=== PATIENT | female | born 1995 | race Caucasian/White ===

== ENCOUNTER 2017-09-25 14:30 | Emergency (ER) | payer OTHER ==
[2017-09-25] MEDS ORDERED: MAG HYDROX/AL HYDROX/SIMETH 30 ML UNIT-DOSE CUP PO ONE (14:43)
[2017-09-25] MEDS ORDERED: ACETAMINOPHEN 325 MG TABLET (FP) PO ONE (14:43)
--- NOTE | 2017-09-25 14:43 | PDOC ---
Rapid Medical Evaluation Time Seen by Provider: 09/25/17 14:37 Medical Evaluation: 09/25/17 14:37 I have performed a brief in-person evaluation of this patient. The patient presents with a chief complaint of: vomiting, epigastric burning Pertinent physical exam findings: PULM: CTAB Cards: RRR. No M/R/G. I have ordered the following: EKG, UPT, UA, Maalox, Tylenol The patient will proceed to the ED for further evaluation. Discharge Disposition - Diagnosis Vomiting Qualifiers: Vomiting type: unspecified Vomiting Intractability: unspecified Nausea presence : unspecified Qualified Code(s): R11.10 - Vomiting, unspecified - Referrals - Patient Instructions - Post Discharge Activity
[2017-09-25 14:44] VITALS: TEMP 97.8; BMI 22.1
[2017-09-25] MEDS ORDERED: SODIUM CHLORIDE 1,000 ML IV STA (14:44)
[2017-09-25 15:30] LABS: URINE APPEARANCE SLCLOUDY; URINE BILIRUBIN NEGATIVE (NEGATIVE); URINE BLOOD NEGATIVE (NEGATIVE); URINE COLOR YELLOW; URINE GLUCOSE (UA) NEGATIVE (NEGATIVE); URINE KETONE NEGATIVE (NEGATIVE); URINE NITRITE NEGATIVE (NEGATIVE); URINE PROTEIN NEGATIVE (NEGATIVE); URINE UROBILINOGEN NEGATIVE mg/dL (0.2-1.0)
[2017-09-25 15:40] LABS: ALBUMIN 3.8 g/dl (3.4-5.0); ANION GAP 13 (8-16); BASOPHIL 0.6 % (0-2.0); BILIRUBIN,TOTAL 0.1 mg/dL (0.2-1.0); CO2 21 mmol/L (21-32); CREATININE 0.7 mg/dL (0.55-1.02); EOSINOPHIL 1.7 % (0-4.5); GLUCOSE,RANDOM 95 mg/dL (74-106); MCH 31.7 pg (25.7-33.7); MEAN CELL VOLUME 93.1 fl (80-96); MEAN PLT VOLUME 9.3 fl (7.5-11.1); NEUTROPHILS 62.7 % (42.8-82.8); PLATELET COUNT 332 K/MM3 (134-434); RDW 12.6 % (11.6-15.6); SGOT/AST 6 U/L (15-37); TOT PROT 7.8 g/dl (6.4-8.2); WHITE BLOOD COUNT 9.9 K/mm3 (4.0-10.0)
[2017-09-25 15:42] LABS: ALK PHOS 64 U/L (45-117); SGPT/ALT 16 U/L (12-78)
[2017-09-25] MEDS ORDERED: ACETAMINOPHEN 325 MG TABLET (FP) ONE (15:52)
[2017-09-25] MEDS ORDERED: MAG HYDROX/AL HYDROX/SIMETH 30 ML UNIT-DOSE CUP ONE (15:52)
--- NOTE | 2017-09-25 15:56 | PDOC ---
History of Present Illness - General History Source: Patient Exam Limitations: No Limitations - History of Present Illness Initial Comments: 09/25/17 16:43 22 year old female, with significant past medical history of gastritis, asthma, and tremors, who presents to the emergency room complaining of epigastric pain and vomiting that began 2 hours after eating today. The patient states that the pain feels like burning and radiates to her throat. She reports multiple episodes of nonbilious, nonbloody vomiting after eating. The patient also notes that she feels very bloated. She denies diarrhea, but states that her bowel movements have been more frequent than usual. She reports that these symptoms feel similar to when she was diagnosed with gastritis.She notes that she has an appointment with a senior escrow officer next Friday. Denies fever, chills. Denies diarrhea, constipation. Denies recent travel. Allergies: Sulfa PCP: Dr. Nino <Yvrose Li - Last Filed: 09/25/17 16:43> <Corry Rodrigues - Last Filed: 09/25/17 17:23> - General Chief Complaint: Pain, Acute Stated Complaint: CHEST PAIN Time Seen by Provider: 09/25/17 14:37 Past History <Yvrose Li - Last Filed: 09/25/17 16:43> - Past Medical History Asthma: Yes COPD: No Other medical history: tremors - Suicide/Smoking/Psychosocial Hx Smoking History: Former smoker Have you smoked in the past 12 months: Yes Information on smoking cessation initiated: No <Corry Rodrigues - Last Filed: 09/25/17 17:23> - Past Medical History Allergies/Adverse Reactions: Allergies Allergy/AdvReac Type Severity Reaction Status Date / Time Sulfa (Sulfonamide Allergy Verified 09/25/17 14:40 Antibiotics) Home Medications: Ambulatory Orders Ondansetron [Ondansetron Odt] 8 mg PO TID PRN #10 tab.roshan 09/25/17 Pantoprazole Sodium [Protonix] 40 mg PO DAILY #14 tablet. 09/25/17 Review of Systems - Review of Systems Able to Perform ROS?: Yes Comments:: 09/25/17 16:43 GENERAL/CONSTITUTIONAL: No fever or chills. No weakness. HEAD, EYES, EARS, NOSE AND THROAT: No change in vision. No ear pain or discharge. No sore throat. GASTROINTESTINAL: +epigastric pain, nausea, vomiting. No diarrhea or constipation. GENITOURINARY: No dysuria, frequency, or change in urination. CARDIOVASCULAR: No chest pain or shortness of breath. RESPIRATORY: No cough, wheezing, or hemoptysis. MUSCULOSKELETAL: No joint or muscle swelling or pain. No neck or back pain. SKIN: No rash NEUROLOGIC: No headache, vertigo, loss of consciousness, or change in strength/ sensation. ENDOCRINE: No increased thirst. No abnormal weight change. HEMATOLOGIC/LYMPHATIC: No anemia, easy bleeding, or history of blood clots. ALLERGIC/IMMUNOLOGIC: No hives or skin allergy. <Yvrose Li - Last Filed: 09/25/17 16:43> *Physical Exam - Vital Signs Last Vital Signs Temp Pulse Resp BP Pulse Ox 97.8 F 86 19 150/112 99 09/25/17 14:40 09/25/17 14:40 09/25/17 14:40 09/25/17 14:40 09/25/17 14:40 - Physical Exam Comments: 09/25/17 16:43 Constitutional: Awake, alert, oriented. No acute distress. Head: Normocephalic. Atraumatic Eyes: PERRL. EOMI. Conjunctivae are not pale. ENT: Mucous membranes are moist and intact. Posterior pharynx without exudates or erythema. Uvula midline. Neck: Supple. Full ROM. No lymphadenopathy. Cardiovascular: Regular rate. Regular rhythm. S1, S2 regular. Distal pulses are 2+ and symmetric. Pulmonary/Chest: No evidence of respiratory distress. Clear to auscultation bilaterally No wheezing, rales or rhonchi. Abdominal: Soft and non-distended. There is no tenderness. No rebound, guarding or rigidity. No organomegaly. No palpable masses. Good bowel sounds. Back: No CVA tenderness. Musculoskeletal: No edema. No cyanosis. No clubbing. Full range of motion in all extremities. Nocalf tenderness. Radial/pedal pulses are intact and 2+ bilaterally Skin: Skin is warm and dry. No petechiae. No purpura. Neurological: Alert and oriented to person, place, and time. Cranial nerves II -XII are grossly intact. Normal speech. Strength is grossly symmetric. No sensory deficits. Psychiatric: Good eye contact. Normal interaction, affect and behavior. <Yvrose Li - Last Filed: 09/25/17 16:43> - Vital Signs Last Vital Signs Temp Pulse Resp BP Pulse Ox 97.8 F 86 19 150/112 99 09/25/17 14:40 09/25/17 14:40 09/25/17 14:40 09/25/17 14:40 09/25/17 14:40 <Corry Rodrigues - Last Filed: 09/25/17 17:23> ED Treatment Course - LABORATORY CBC & Chemistry Diagram: 09/25/17 15:15 09/25/17 15:15 - ADDITIONAL ORDERS Additional order review: Laboratory Results 09/25/17 09/25/17 15:15 15:15 Sodium 141 Potassium 4.1 Chloride 107 Carbon Dioxide 21 Anion Gap 13 BUN 10 Creatinine 0.7 Creat Clearance w eGFR > 60 Random Glucose 95 Calcium 9.0 Total Bilirubin 0.1 L AST 6 L ALT 16 Alkaline Phosphatase 64 Total Protein 7.8 Albumin 3.8 Urine Color Yellow Urine Appearance Slcloudy Urine pH 6.0 Ur Specific [place] 1.020 Urine Protein Negative Urine Glucose (UA) Negative Urine Ketones Negative Urine Blood Negative Urine Nitrite Negative Urine Bilirubin Negative Urine Urobilinogen Negative Urine HCG, Qual Negative 09/25/17 15:15 RBC 4.16 MCV 93.1 MCHC 34.0 RDW 12.6 MPV 9.3 Neutrophils % 62.7 Lymphocytes % 28.8 Monocytes % 6.2 Eosinophils % 1.7 Basophils % 0.6 - Medications Given in the ED: ED Medications Discontinued Medications Generic Name Dose Route Start Last Admin Trade Name Meryl PRN Reason Stop Dose Admin Acetaminophen 650 mg 09/25/17 14:43 09/25/17 16:10 Tylenol - PO 09/25/17 14:44 650 mg ONCE ONE Administration Al Hydroxide/Mg Hydroxide 30 ml 09/25/17 14:43 09/25/17 16:10 Mylanta Oral Suspension - PO 09/25/17 14:44 30 ml ONCE ONE Administration Sodium Chloride 1,000 mls @ 1,000 mls/hr 09/25/17 14:44 09/25/17 16:11 Normal Saline - IV 09/25/17 15:43 1,000 mls/hr ASDIR STA Administration <Yvrose Li - Last Filed: 09/25/17 16:43> - LABORATORY CBC & Chemistry Diagram: 09/25/17 15:15 09/25/17 15:15 - ADDITIONAL ORDERS Additional order review: Laboratory Results 09/25/17 09/25/17 15:15 15:15 Sodium 141 Potassium 4.1 Chloride 107 Carbon Dioxide 21 Anion Gap 13 BUN 10 Creatinine 0.7 Creat Clearance w eGFR > 60 Random Glucose 95 Calcium 9.0 Total Bilirubin 0.1 L AST 6 L ALT 16 Alkaline Phosphatase 64 Total Protein 7.8 Albumin 3.8 Urine HCG, Qual Negative 09/25/17 15:15 RBC 4.16 MCV 93.1 MCHC 34.0 RDW 12.6 MPV 9.3 Neutrophils % 62.7 Lymphocytes % 28.8 Monocytes % 6.2 Eosinophils % 1.7 Basophils % 0.6 <Corry Rodrigues - Last Filed: 09/25/17 17:23> Medical Decision Making - Medical Decision Making 09/25/17 16:26 a/p: 22yo female with epigastric burning up through her chest and sour taste in the back of her mouth -no infectious etiology -abd soft and nontender suspect gastritis vs GERD no ruq ttp -labs sent by E which on review did not show acute anormalities -no diarrhea, no dysuria -pt is nontoxic in appearance -received maalox and is feeling better. no burning. has appt on friday of next week to see GI hx of gastritis in the past that was treated with meds will continue to monitor 09/25/17 17:14 re-eval: pt feeling better. PO challenging now. labs reviewed. 09/25/17 17:23 pt tolerated po. feeling at baseline. stable for d/c to home. Pt will keep her appt with GI for next week. <Corry Rodrigues - Last Filed: 09/25/17 17:23> *DC/Admit/Observation/Transfer - Attestations Scribe Attestion: 09/25/17 16:43 Documentation prepared by FAYE Grant, acting as front office medical assistant for Corry Rodrigues DO. <Yvrose Li - Last Filed: 09/25/17 16:43> - Discharge Dispostion Admit: No - Attestations Physician Attestion: 09/25/17 16:32 I, . Corry Rodrigues, DO, attest that this document has been prepared under my direction and personally reviewed by me in its entirety. I further attest, that it accurately reflects all work, treatment, procedures and medical decision -making performed by me. <Corry Rodrigues - Last Filed: 09/25/17 17:23> Diagnosis at time of Disposition: Epigastric abdominal pain Vomiting Qualifiers: Vomiting type: unspecified Vomiting Intractability: unspecified Nausea presence : unspecified Qualified Code(s): R11.10 - Vomiting, unspecified - Discharge Dispostion Disposition: HOME - Prescriptions Prescriptions: Ondansetron [Ondansetron Odt] 8 mg PO TID PRN #10 tab.rapdis PRN Reason: Nausea And/Or Vomiting Pantoprazole Sodium [Protonix] 40 mg PO DAILY #14 tablet.dr - Referrals Referrals: Jamie Nino MD [Primary Care Provider] - - Patient Instructions Printed Discharge Instructions: DI for Gastritis, Baker Diet Additional Instructions: Please keep your appointment with the senior escrow officer for next friday. Please take all meds as prescribed. Please return to the ED with any further complaints. - Post Discharge Activity
[2017-09-25 17:39] VITALS: BP 120/80; PULSE 84
[2017-09-25 18:48] LABS: URINE LEUK ESTERASE 1+ (NEGATIVE)
[2017-09-25 20:04] LABS: URINE BACTERIA MODERATE /hpf (NEGATIVE); URINE RBC 0-2 /hpf (0-3)
--- NOTE | 2017-09-26 10:04 | EKG ---
Test Reason : Blood Pressure : / mmHG Vent. Rate : 069 BPM Atrial Rate : 069 BPM P-R Int : 120 ms QRS Dur : 084 ms QT Int : 370 ms P-R-T Axes : 033 088 041 degrees QTc Int : 396 ms NORMAL SINUS RHYTHM WITH SINUS ARRHYTHMIA NORMAL ECG NO PREVIOUS ECGS AVAILABLE Confirmed by NAYELI MASON MD ([id number]) on 09/26/2017 10:04:25 AM Referred By: Confirmed By:NAYELI MASON MD
== END 2017-09-25 17:40 | disposition home or self-care (01) ==
LOC: JER 14:30
PROC: 3E0337Z Introduction of Electrolytic and Water Balance Substance into Peripheral Vein, Percutaneous Approach (ICD-10-PCS; principal; 2017-09-25)
DX: K29.70 Gastritis, unspecified, without bleeding (principal)
CPT/HCPCS: 36415; 80053; 81003; 81015; 84703; 85025; 93005; 93010; 99283-25